=== PATIENT | female | born 1975 | race Caucasian/White ===

== ENCOUNTER 2020-09-03 08:02 | Outpatient (CLI) | payer BC, SELFPAY ==
--- NOTE | 2020-09-03 08:13 | US_ITS ---
WS: [id number] PELVIC ULTRASOUND REASON FOR VISIT: RLQ ABDOMINAL PAIN TECHNIQUE: Grayscale and Doppler transabdominal and transvaginal pelvic ultrasound. FINDINGS: Uterus is absent and 10 ovary cannot be identified in the right pelvis. This is compatible with the p revious surgical history. The left ovary measures 3.02 x 1.21 x 2.19 cm. There is a small simple cyst within the left ovary. Th ere is also a complex cyst which has internal septations and low level echoes that measures 1.77 x 1. 43 x 1.81 cm. No free fluid was identified in the pelvis and no pelvic mass was identified. US/US pelvic with transvaginal IMPRESSION: Postsurgical changes above. The more complex cyst in the presumed left ovary could represent an involuting luteum cyst however a follow-up in several weeks to confirm that impression wou ld be reasonable.
== END 2020-09-03 08:03 | disposition home or self-care (01) ==
LOC: RAD 08:08
PROVIDERS: PCP Nurse Practitioner Family; Visit Provider Nurse Practitioner Family
DX: R10.31 Right lower quadrant pain (principal); N83.202 Unspecified ovarian cyst, left side
CPT/HCPCS: 76830; 76856

== ENCOUNTER 2020-09-30 10:59 | Outpatient (CLI) | payer BC, SELFPAY ==
--- NOTE | 2020-09-30 11:05 | MM_ITS ---
WS: [id number] BILATERAL DIGITAL SCREENING MAMMOGRAM WITH CAD CLINICAL INFORMATION: SCREENING HISTORY: Screening mammogram. No current complaints. COMPARISON: None. TECHNIQUE: Bilateral CC and MLO. FINDINGS: The breast are composed of extremely dense tissue, which can limit the detection of small underlying mass lesions. No suspicious focal mass, asymmetry, calcifications, or architectural distortion. No ev idence of malignancy. Punctate calcifications. MM/[id number] IMPRESSION: BI-RADS: 2-Benign FOLLOW UP: 1 Year Follow-up Recommend return to annual screening mammography.
== END 2020-09-30 11:00 | disposition home or self-care (01) ==
LOC: RADSHAW 11:02
PROVIDERS: PCP Nurse Practitioner Family; Visit Provider Nurse Practitioner Family
DX: Z12.31 Encounter for screening mammogram for malignant neoplasm of breast (principal)
CPT/HCPCS: 77067

== ENCOUNTER 2020-10-18 19:40 | Emergency (ER) | payer BC, SELFPAY ==
[2020-10-18 19:42] VITALS: BP 128/68; PULSE 107; RESP 20; TEMP 36.8; O2SAT 98; BMI 22.6
--- NOTE | 2020-10-18 19:58 | ED_ITS ---
HPI - Alcohol General: Chief Complaint: Alcohol Stated Complaint: ams, sev etoh Time Seen by Provider: 10/18/20 19:45 History of Present Illness: HPI narrative: 45-year-old female who drank 1/5 of Alexander montes since 1:30 PM. She began to get sick, and has had multiple episodes of vomiting. EMS was called. She has had 4 mg of Zofran and 100 of thiamine. She is improved at this point. Is resting comfortably she has no complaints of pain or nausea. MD complaint: alcohol intoxication Last drink: Hours (ago) Chronic alcohol use: No Previous visits for alcohol intoxication: No Recent trauma: No Associated symptoms: Reports nausea and vomiting; Deny abdominal pain, hematemesis, involuntary movements or suicidal ideation Treatments prior to arrival: anti-emetics and other Review of Systems General: Reports: ROS unobtainable due to mental status GI: Reports: nausea and vomiting; Denies: abdominal pain or hematemesis Neuro: Denies: involuntary movements Psych: Denies: suicidal ideation Physical Exam Const: GENERAL APPEARANCE: well kempt and lethargic ORIENTATION/CONSCIOUSNESS: Yes oriented to person, Yes oriented to place and Yes lethargic; not oriented to time HENMT: COMMON NORMALS: normocephalic, external ears normal and Normal external nose present HEAD & SCALP: normocephalic FACE & SINUS: normal facial exam NOSE: Normal external nose present and No nasal discharge present EXTERNAL EAR: Yes external ears normal MOUTH: tongue normal Eye: COMMON NORMALS: Equal, round and reactive pupils present, EOMs intact bilaterally and conjunctivae normal EYELID: eyelids normal CONJUNCTIVA: Yes conjunctivae normal PUPIL: Yes Equal, round and reactive pupils present Neck/C-Spine: GENERAL: No tracheal deviation CERVICAL SPINE: Yes normal cervical lordosis and No Cervical spine tenderness Chest: COMMONS NORMALS: normal inspection of the chest CHEST: No tenderness Resp: COMMON NORMALS: clear to auscultation bilaterally EFFORT & INSPECTION: No tachypneic, No respiratory distress, No retractions, No uses accessory muscles and No tracheal deviation AUSCULTATION: clear to auscultation bilaterally, no rhonchi, no wheezes and lung sounds not diminished Cardio: COMMON NORMALS: regular rate and regular rhythm RATE: regular rate RHYTHM: regular rhythm HEART SOUNDS: no murmurs PERIPHERAL PULSES: radial pulses present GI: INSPECTION: No abdominal distension AUSCULTATION: No Hyperactive bowel sounds present and No Hypoactive bowel sounds present PALPATION: No Guarding due to palpation present (GI) and No Rigid due to palpation PERCUSSION: no dullness to percussion and no tympanic to percussion Neuro: SENSORIUM/ORIENTATION: Yes oriented to person, Yes oriented to place, N o oriented to time and Yes lethargic Psych: APPEARANCE: Yes well kempt ATTITUDE: Yes calm ACTIVITY/MOTOR BEHAVIOR: Yes appropriate eye contact and Yes psychomotor slowing SPEECH: Yes slurred Skin: COMMON NORMALS: no rashes or lesions noted GENERAL SKIN EXAM: no rashes or lesions noted Course Vital Signs: Vital signs: Vital Signs Temperature 98.2 F 10/18/20 19:42 Pulse Rate 97 10/18/20 23:30 Respiratory Rate 16 10/18/20 23:30 Blood Pressure 101/52 10/18/20 23:30 Pulse Oximetry 96 10/18/20 23:30 MDM - Alcohol MDM Narrative: Medical decision making narrative: 45-year-old intoxicated female who was vomiting. No further vomiting here. She is received 2 L of fluid. She has a mild elevation in her white blood cell count, and a bicarbonate level of 19 due to blood alcohol level of 386. It is come down to 272 appropriately. She has been stable here. She may return home with a responsible adult. Lab Data: Labs: Lab Results 10/18/20 10/18/20 10/18/20 Range/Units 19:54 19:54 22:40 WBC 13.5 H (4.0-10.0) 10^3/ uL RBC 4.58 (4.1-5.3) 10^6/u L Hgb 14.7 (11.5-15.3) g/dL Hct 44.2 (37.0-47.0) % MCV 96.5 (81-99) fL MCH 32.1 (28.0-34.0) pg MCHC 33.3 (30.0-36.0) g/dL RDW 13.2 (12.1-15.1) % Plt Count 369 (130-400) 10^3/c mm MPV 10.4 (7.4-10.4) fL Neut % (Auto) 54.8 % Lymph % (Auto) 38.8 % Traverse % (Auto) 4.1 % Eos % (Auto) 1.3 % Baso % (Auto) 0.8 % Neut # (Auto) 7.39 (1.8-7.7) 10^3/u L Lymph # (Auto) 5.2 H (0.8-4.8) 10^3/u L Traverse # (Auto) 0.6 (0.2-0.9) 10^3/u L Eos # (Auto) 0.2 (0.0-0.8) 10^3/u L Baso # (Auto) 0.1 (0.0-0.1) 10^3/u L Nucleated RBC % (a uto) 0 % Nucleated RBCs # 0.0 /100WBC Sodium 142 (136-145) mmol/L Potassium 4.1 (3.5-5.1) mmol/L Chloride 106 (98-107) mmol/L Carbon Dioxide 19 L (22-29) mmol/L Anion Gap 21.1 H (5-19) BUN 14 (6-20) mg/dL Creatinine 0.7 (0.5-0.9) mg/dL GFR Calculation 90.1 (90-130) mL/min Glucose 140 H (65-115) mg/dL Calculated Osmolal ity 297 H (285-295) mOsm/k g Calcium 9.2 (8.5-10.5) mg/dL Total Bilirubin 0.2 (0.15-1.2) mg/dL AST 14 (0-32) U/L ALT 12 (0-33) U/L Alkaline Phosphata se 94 (35-105) IU/L Total Protein 7.6 (6.6-8.7) g/dL Albumin 5.0 (3.5-5.2) g/dL Globulin 2.6 (1.3-4.6) g/dL HCG, Qual Negative (Negative) Urine Color (Yellow) Urine Appearance (CLEAR) Urine pH (5-7) Ur Specific Gravit y (1.005-1.030) Urine Protein (Negative) Urine Glucose (UA) (Normal) Urine Ketones (Negative) Urine Blood (Negative) Urine Nitrate (Negative) Urine Bilirubin (Negative) Urine Urobilinogen (Negative) mg/dL Ur Leukocyte Henna ase (Negative) Urine Opiates Scre en (Negative) ng/mL Ur Barbiturates Sc reen (Negative) ng/mL Ur Phencyclidine S crn (Negative) ng/mL Ur Amphetamines Sc reen (Negative) ng/mL U Benzodiazepines Scrn (Negative) ng/mL Urine Cocaine Scre en (Negative) ng/mL U Marijuana (THC) Screen (Negative) ng/mL Ethyl Alcohol 386 H* (0-10) mg/dL 10/18/20 10/18/20 10/18/20 Range/Units 22:40 22:40 22:51 WBC (4.0-10.0) 10^3/ uL RBC (4.1-5.3) 10^6/u L Hgb (11.5-15.3) g/dL Hct (37.0-47.0) % MCV (81-99) fL MCH (28.0-34.0) pg MCHC (30.0-36.0) g/dL RDW (12.1-15.1) % Plt Count (130-400) 10^3/c mm MPV (7.4-10.4) fL Neut % (Auto) % Lymph % (Auto) % Traverse % (Auto) % Eos % (Auto) % Baso % (Auto) % Neut # (Auto) (1.8-7.7) 10^3/u L Lymph # (Auto) (0.8-4.8) 10^3/u L Traverse # (Auto) (0.2-0.9) 10^3/u L Eos # (Auto) (0.0-0.8) 10^3/u L Baso # (Auto) (0.0-0.1) 10^3/u L Nucleated RBC % (a uto) % Nucleated RBCs # /100WBC Sodium (136-145) mmol/L Potassium (3.5-5.1) mmol/L Chloride (98-107) mmol/L Carbon Dioxide (22-29) mmol/L Anion Gap (5-19) BUN (6-20) mg/dL Creatinine (0.5-0.9) mg/dL GFR Calculation (90-130) mL/min Glucose (65-115) mg/dL Calculated Osmolal ity (285-295) mOsm/k g Calcium (8.5-10.5) mg/dL Total Bilirubin (0.15-1.2) mg/dL AST (0-32) U/L ALT (0-33) U/L Alkaline Phosphata se (35-105) IU/L Total Protein (6.6-8.7) g/dL Albumin (3.5-5.2) g/dL Globulin (1.3-4.6) g/dL HCG, Qual (Negative) Urine Color Straw (Yellow) Urine Appearance Clear (CLEAR) Urine pH 5 (5-7) Ur Specific Gravit y 1.015 (1.005-1.030) Urine Protein Neg (Negative) Urine Glucose (UA) Norm (Normal) Urine Ketones 1+ H (Negative) Urine Blood Neg (Negative) Urine Nitrate Negative (Negative) Urine Bilirubin Neg (Negative) Urine Urobilinogen Norm (Negative) mg/dL Ur Leukocyte Henna ase Negative (Negative) Urine Opiates Scre en Negative (Negative) ng/mL Ur Barbiturates Sc reen Negative (Negative) ng/mL Ur Phencyclidine S crn Negative (Negative) ng/mL Ur Amphetamines Sc reen Negative (Negative) ng/mL U Benzodiazepines Scrn Negative (Negative) ng/mL Urine Cocaine Scre en Negative (Negative) ng/mL U Marijuana (THC) Screen Negative (Negative) ng/mL Ethyl Alcohol 272 H (0-10) mg/dL Discharge Plan Discharge Patient Disposition: Home Clinical Impression: Alcoholic intoxication Qualifiers: Complication of substance-induced condition: uncomplicated Qualified Code(s): F10.920 - Alcohol use, unspecified with intoxication, uncomplicated Condition: Stable Prescriptions: New ondansetron 4 mg film 4 mg PO DAILY PRN (Reason: nausea and vomiting) Qty: 10 RF: 0 Discharge Orders: Discharge Order (Routine); Ordered 10/18/20 Ordered By: Aubrey Wren Referrals: Lina Marmolejo CLIENT SERVICES ADMINISTRATOR [Primary Care Provider] - Discharge Diet: Advance as tolerated Discharge Activity: Resume usual activity Patient Instructions: Alcohol Intoxication (ED) Activity Restrictions/Additional Instructions: Abstain from alcohol. Return for vomiting liquids or medications despite treatment, worsening mental status, other concerning symptoms. Coding Level of Care Code ED [employer]jack [employer] for Shahrzadg Fwd Exam Comprehensive
[2020-10-18 20:12] LABS: Basophils # 0.1 10^3/uL (0.0-0.1); Basophils % 0.8 %; Eosinophils # 0.2 10^3/uL (0.0-0.8); Eosinophils % 1.3 %; Hematocrit 44.2 % (37.0-47.0); Hemoglobin 14.7 g/dL (11.5-15.3); Lymphocytes # 5.2 10^3/uL (0.8-4.8); Lymphocytes % 38.8 %; Mean Corpuscular HGB Conc 33.3 g/dL (30.0-36.0); Mean Corpuscular Hemoglobin 32.1 pg (28.0-34.0); Mean Corpuscular Volume 96.5 fL (81-99); Mean Platelet Volume 10.4 fL (7.4-10.4); Monocytes # 0.6 10^3/uL (0.2-0.9); Monocytes % 4.1 %; Neutrophils # 7.39 10^3/uL (1.8-7.7); Neutrophils % 54.8 %; Nucleated Red Blood Cells % 0 %; Platelet Count 369 10^3/cmm (130-400); Red Blood Count 4.58 10^6/uL (4.1-5.3); Red Cell Distribution Width 13.2 % (12.1-15.1); White Blood Count 13.5 10^3/uL (4.0-10.0)
[2020-10-18] MEDS: sodium chloride 0.9% 1,000 ML 999 ML IV (20:18)
[2020-10-18 20:19] VITALS: BP 92/44; PULSE 93; RESP 16; O2SAT 94
[2020-10-18 20:44] LABS: Alanine Aminotransferase 12 U/L (0-33); Alkaline Phosphatase 94 IU/L (35-105); Anion Gap 21.1 (5-19); Aspartate Amino Transferase 14 U/L (0-32); Blood Urea Nitrogen 14 mg/dL (6-20); Calcium 9.2 mg/dL (8.5-10.5); Carbon Dioxide 19 mmol/L (22-29); Chloride 106 mmol/L (98-107); Globulin 2.6 g/dL (1.3-4.6); Glomerular Filtration Rate 90.1 mL/min (90-130); Glucose 140 mg/dL (65-115); Osmolality Calculated 297 mOsm/kg (285-295); Potassium 4.1 mmol/L (3.5-5.1); Sodium 142 mmol/L (136-145); Total Bilirubin 0.2 mg/dL (0.15-1.2); Total Protein 7.6 g/dL (6.6-8.7)
[2020-10-18 20:49] LABS: Alcohol Level 386 mg/dL (0-10)
[2020-10-18 22:00] VITALS: BP 109/37; PULSE 102; RESP 14; O2SAT 100
[2020-10-18 22:58] LABS: Add Urine Microscopic? NO
[2020-10-18 23:00] VITALS: BP 101/52; PULSE 99; RESP 16; O2SAT 96
[2020-10-18 23:18] LABS: Bilirubin Urine Neg (Negative); Blood Urine Neg (Negative); Glucose Urine UA Norm (Normal); HCG Qualitative Urine. Negative (Negative); Ketones Urine 1+ (Negative); Leukocyte Esterase Urine Negative (Negative); Nitrate Urine Negative (Negative); Protein Urine Neg (Negative); Specific Gravity, Urine 1.015 (1.005-1.030); Urine Appearance Clear (CLEAR); Urine Color Straw (Yellow); Urobilinogen Urine Norm (Negative); pH Urine 5 (5-7)
[2020-10-18 23:27] LABS: Amphetamines Screen Urine Negative (Negative); Barbiturates Screen Urine Negative (Negative); Benzodiazepines Screen Urine Negative (Negative); Cocaine Screen Urine Negative (Negative); Opiate Screen Urine Negative (Negative); PCP Screen Urine Negative (Negative); THC Screen Urine Negative (Negative)
[2020-10-18 23:30] VITALS: BP 101/52; PULSE 97; RESP 16; O2SAT 96
[2020-10-18 23:32] LABS: Alcohol Level 272 mg/dL (0-10)
[2020-10-19 00:19] VITALS: BP 103/48; PULSE 107; RESP 16; TEMP 36.8; O2SAT 97
== END 2020-10-19 00:23 | disposition home or self-care (01) ==
PROVIDERS: Emergency Provider Emergency Medicine; PCP Nurse Practitioner Family
DX: F10.920 Alcohol use, unspecified with intoxication, uncomplicated (principal); Y90.8 Blood alcohol level of 240 mg/100 ml or more
CPT/HCPCS: 12345; 36415; 80053; 80306; 80307; 81003; 81025; 85025; 96360; 96361; 99283; J7030

== ENCOUNTER 2020-10-28 12:26 | Outpatient (CLI) | payer BC, SELFPAY | END 2020-10-28 12:27 | disposition home or self-care (01) | LOC: US 12:34 | PROVIDERS: PCP Nurse Practitioner Family; Visit Provider Nurse Practitioner Family | DX: N83.202 Unspecified ovarian cyst, left side (principal) ==